=== PATIENT | male | born 1985 | race African-American/Black ===

== ENCOUNTER 2024-06-26 05:11 | Emergency (ER) | payer MEDICAID, SELFPAY ==
[2024-06-26 05:12] VITALS: BP 182/121; PULSE 95; RESP 19; TEMP 36.9; O2SAT 96; BMI 25.0
--- NOTE | 2024-06-26 05:26 | PD.EDRME ---
Rapid Medical Screening Exam RME Arrival date/time: 06/26/24 05:11 38-year-old male past medical history of daily drinker presents emergency department complaining of generalized weakness and reports last drink was yesterday. Chief Complaint: General Adult/Misc Complain Vital signs: Vital Signs Temperature 98.5 F 06/26/24 05:12 Pulse Rate 95 06/26/24 05:12 Respiratory Rate 19 06/26/24 05:12 Blood Pressure 182/121 H 06/26/24 05:12 Pulse Oximetry (%) 96 06/26/24 05:12 Oxygen Delivery Method Room Air 06/26/24 05:12 Vital signs reviewed by provider: Yes
--- NOTE | 2024-06-26 05:28 | EKG_ITS ---
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
[2024-06-26 05:36] VITALS: BP 182/121; PULSE 95
[2024-06-26] MEDS: LORazepam 0.5 MG TABLET 1 MG PO (05:36)
[2024-06-26] MEDS: ONDANSETRON ODT 4 MG TABRAP PO (05:36)
[2024-06-26] MEDS: hydrALAZINE HCL 25 MG TABLET PO (05:36)
[2024-06-26 06:05] LABS: Basophils # (Auto) 0.1 Thou/mm3 (0.0-0.2); Basophils % (Auto) 1 % (0-2.5); Eosinophils # (Auto) 0.3 Thou/mm3 (0.0-0.5); Eosinophils % (Auto) 3 % (0-10); Hemoglobin 15.5 g/dL (13.5-16.0); Immature Granulocytes % (Auto) 0 % (0-0); Immature Granulocytes Auto 0.02 Thou/mm3 (0.00-0.00); Lymphocytes % (Auto) 24 % (10-50); Mean Corpuscular HGB Conc 34.4 g/dl (31.0-37.0); Mean Corpuscular Hemoglobin 30.7 pg (25.0-35.0); Mean Corpuscular Volume 89 fL (80-100); Monocytes # (Auto) 0.5 Thou/mm3 (0.0-0.8); Monocytes % (Auto) 6 % (0-12); Neutrophils # (Auto) 5.6 Thou/mm3 (1.8-7.7); Neutrophils % (Auto) 66 % (37-80); Nucleated Red Blood Cell % 0 /100 WBC (0); Platelet Count 229 Thou/mm3 (140-440); RDW Standard Deviation 45.1 fL (35.1-43.9); Red Blood Count 5.05 Miln/mm3 (4.50-5.90); White Blood Count 8.5 Thou/mm3 (3.8-10.6)
[2024-06-26 06:14] LABS: Collection Type, Urine Clean Catch
[2024-06-26 06:18] LABS: Alanine Aminotransferase 50 U/L (10-49); Albumin, Serum 5.2 gm/dL (3.5-5.0); Albumin/Globulin Ratio 2.2 (1.2-2.2); Alcohol, Blood Medical 135.1 mg/dL (0-10.0); Alkaline Phosphatase 72 U/L (46-116); Anion Gap 11 (7-16); Aspartate Amino Transferase 55 U/L (0-34); BUN/Creatinine Ratio 8 Ratio (12-20); Bilirubin,Total 1.4 mg/dL (0.3-1.2); Blood Urea Nitrogen 9 mg/dL (9-23); Calcium 9.8 mg/dL (8.3-10.6); Calcium (Corrected) 9.8 mg/dL (8.5-10.1); Carbon Dioxide 31.5 mMol/L (20.0-31.0); Chloride 98 mMol/L (98-107); Creatinine (Component) 1.1 mg/dL (0.6-1.3); Estimated Creatinine Clearance 84.3 mL/min (>60); Globulin 2.4 gm/dL (2.3-3.5); Glucose 96 mg/dL (74-106); Magnesium 1.9 mg/dL (1.6-2.6); Osmolality,Calculated 278 (275-295); Potassium 4.3 mMol/L (3.4-5.1); Sodium 140 mMol/L (136-145); Total Protein 7.6 gm/dL (5.7-8.2); Troponin I < 0.020 ng/mL (0.0-0.045); eGFR > 60 See Note
[2024-06-26 06:22] LABS: Bilirubin,Urine Negative (Negative); Blood,Urine 1+ (Negative); Clarity,Urine Clear (Clear/Hazy); Color,Urine Yellow (Lt Yel-Yel); Culture Indicated,Urine Not Indicated; Glucose, Urine Negative (Negative); Hyaline Casts,Urine < 1 /hpf (0-1); Ketones,Urine 2+ (Negative); Leukocyte Esterase,Urine Negative (Negative); Nitrite,Urine Negative (Negative); PH,Urine 6.5 (5.0-7.0); Protein,Urine 1+ (Neg - Trace); RBC,Urine 3 /hpf (0-3); Specific Gravity,Urine 1.027 (1.001-1.035); Squamous Epithelial Cell,Urine < 1 /hpf (0-5); Urobilinogen,Urine Negative mg/dL (0.0-1.0); WBC,Urine 2 /hpf (0-5)
[2024-06-26 06:28] LABS: Partial Thromboplastin Time 25.5 Seconds (22.0-36.0); Prothrombin Time 11.2 Seconds (9.0-12.2)
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
[2024-06-26 07:07] LABS: Amphetamine/Methamp Scrn,U Negative (Negative); Barbiturate Screen,Urine Negative (Negative); Benzodiazepines Screen,Urine Negative (Negative); Benzoylecgonine Screen, Ur Negative (Negative); Fentanyl Screen,Urine Negative (Negative); Opiate Screen,Urine Negative (Negative); THC Screen,Urine Positive (Negative)
[2024-06-26 07:11] VITALS: BP 127/85; PULSE 80; RESP 18; TEMP 36.7; O2SAT 99
== END 2024-06-26 07:10 | disposition home or self-care (01) ==
PROVIDERS: Emergency Provider Emergency Medicine; PCP Family Medicine
DX: F10.10 Alcohol abuse, uncomplicated (principal)
CPT/HCPCS: 36415; 80053; 80307; 80320; 81001; 83735; 84484; 85025; 85610; 85730; 93005; 99283; Q0162; A9270; G0480

== ENCOUNTER 2025-05-22 10:43 | Emergency (ER) | payer MEDICAID, SELFPAY ==
[2025-05-22] VITALS (7 sets, daily range): BP systolic 124–200; BP diastolic 98–132; PULSE 78–136; RESP 16–20; TEMP 36.6–37.3; O2SAT 94–97; BMI 25.8
--- NOTE | 2025-05-22 11:21 | EKG_ITS ---
[facility] Test Date: 2025-05-22 Pat Name: CARMELO GUZMÁN Department: Room: - Gender: Male Speech Lang Path: : 1985 Requested By: Laurent Hillman ([facility]) Order Number: [id number] Reading MD: Laurent Hillman ([facility]) Measurements Intervals [place] Rate: 128 P: 65 RI: 130 QRS: 41 QRSD: 86 T: 47 QT: 291 QTc: 426 Interpretive Statements SINUS TACHYCARDIA LEFT VENTRICULAR HYPERTROPHY AND ST-T CHANGE [VOLTAGE CRITERIA PLUS ST/T ABNORMALITY] Compared to ECG 06/26/2024 05:39:38 ST (T wave) deviation now present Sinus rhythm no longer present Sinus arrhythmia no longer present T-wave abnormality no longer present /store/S0/[id number]
--- NOTE | 2025-05-22 11:31 | PD.EDABDPN ---
ED Abdominal Pain RME/HPI General Chief Complaint: Abdominal Pain Stated complaint: abdominal pain Time seen by provider: 05/22/25 11:30 Arrival date/time: 05/22/25 10:43 RME / HPI RME / HPI narrative: See [facility] for Dr. Mcgarry's HPI documentation. Related Data Home Medications ?Medication ?Instructions ?Recorded ?Confirmed lisinopril 10 1 tab PO QDAY 08/11/22 08/11/22 mg-hydrochlorothiazide 12.5 mg tablet Previous Rx's ?Medication ?Instructions ?Recorded alprazolam 0.25 mg tablet (Xanax) 0.25 mg PO BID PRN anxiety #14 tabs 03/19/23 lisinopril 10 1 tab PO QDAY #30 tabs 05/17/24 mg-hydrochlorothiazide 12.5 mg tablet (Zestoretic) metoclopramide HCl 10 mg tablet 10 mg PO Q6H PRN nausea and 06/26/24 (Reglan) vomiting #30 tabs clonidine HCl 0.1 mg tablet 0.1 mg PO BID #60 tabs 05/22/25 Allergies Allergy/AdvReac Type Severity Reaction Status Date / Time almond Allergy Severe Swelling Verified 05/17/24 10:52 of Lip/Tongue/Throat Ruth nut Allergy Severe Swelling Verified 05/17/24 10:52 of Lip/Tongue/Throat melon Allergy Severe Swelling Verified 05/17/24 10:51 of Lip/Tongue/Throat pecan nut Allergy Severe Swelling Verified 05/17/24 10:52 of Lip/Tongue/Throat walnut Allergy Severe Swelling Verified 05/17/24 10:52 of Lip/Tongue/Throat Review of Systems Review of Systems Systems Reviewed: All systems reviewed, normal except as documented Past Medical History Past Medical History CARDIAC: Positive Hypertension Social History SMOKING STATUS: Light (< 1 pack/day) ED Exam Narrative Physical exam: See [facility] for Dr. Mcgarry's physical exam documentation. Course Quality Measures none Orders Category Date Time Status Bedside COVID-19 Antigen Test NOW Care 05/22/25 12:01 Completed EKG (ED ONLY) *Do not use* NOW Care 05/22/25 11:21 Completed Saline [Insert IV] NOW Care 05/22/25 12:[address] chest abdomen pelvis wo Stat Exams 05/22/25 12:[address] head/brain wo con Stat Exams 05/22/25 12:03 Completed EKG (ED Only) Stat Exams 05/22/25 11:21 Draft US gall bladder Stat Exams 05/22/25 12:17 Completed XR chest 1V portable Stat Exams 05/22/25 12:03 Completed Acetaminophen Stat Lab 05/22/25 12:03 Completed Alcohol, Blood Medical Stat Lab 05/22/25 12:03 Completed Amylase Stat Lab 05/22/25 12:03 Completed BNP [B-Type Natriuretic Peptide] Stat Lab 05/22/25 12:30 Completed Beta Hydroxybutyrate Stat Lab 05/22/25 12:03 Completed Bilirubin,Direct Stat Lab 05/22/25 12:03 Completed CBC Stat Lab 05/22/25 12:04 Completed CK [Creatine Kinase] Stat Lab 05/22/25 12:03 Completed CMP [Comprehensive Metabolic Panel] Stat Lab 05/22/25 12:03 Completed CRP [C-Reactive Protein] Stat Lab 05/22/25 12:03 Completed D-Dimer Stat Lab 05/22/25 12:30 Completed Drug Screen,Urine Stat Lab 05/22/25 12:43 Completed ESR [Sed Rate (ESR)] Stat Lab 05/22/25 12:04 Completed Influenza A & B Rapid Panel Stat Lab 05/22/25 13:23 Completed Lipase Stat Lab 05/22/25 12:03 Completed Magnesium Stat Lab 05/22/25 12:03 Completed Procalcitonin Stat Lab 05/22/25 12:03 Completed Salicylate Stat Lab 05/22/25 12:03 Completed TSH [Thyroid Stimulating Hormone] Stat Lab 05/22/25 12:03 Completed Troponin I Stat Lab 05/22/25 12:03 Completed UA, C/S IF [Urinalysis, C/S if Indicated] Stat Lab 05/22/25 12:42 Completed VBG [Venous Blood Gas] Stat Lab 05/22/25 12:30 Completed Metoprolol Tartrate Inj [Lopressor Inj] Med 05/22/25 13:02 Discontinued 5 mg IVP X1 ONE Metoprolol Tartrate [Lopressor] Med 05/22/25 12:01 Discontinued 50 mg PO X1 ONE Metoprolol Tartrate [Lopressor] Med 05/22/25 13:33 Discontinued 75 mg PO X1 ONE Ondansetron Inj [Zofran Inj] Med 05/22/25 12:02 Discontinued 4 mg IVP X1 ONE Sodium Chloride 0.9% 1000 ml [Ns] 1,000 ml Med 05/22/25 12:02 Discontinued IV 999 mls/hr cloNIDine HCL [Catapres] Med 05/22/25 12:01 Discontinued 0.3 mg PO X1 ONE Vital Signs Vital signs: Vital Signs Temperature 98.4 F 05/22/25 10:57 Pulse Rate 136 H 05/22/25 10:57 Respiratory Rate 18 05/22/25 10:57 Blood Pressure 162/125 H 05/22/25 10:57 Pulse Oximetry (%) 96 05/22/25 10:57 Pulse ox is 96% on room air which is adequate. Abdominal Pain MDM MDM Narrative MDM Narrative:: This section includes all my notes and documentations, including HPI, PE, and ED course. Kartik Mcgarry MD HPI: 39-year-old male here with multiple symptoms. But high BP is his main concern. He reports headache and dizziness. With chest pain and abdominal pain and shortness of breath. No other complaints. ROS: All negative except as documented in HPI. Physical Exam: General: Alert and oriented. No acute distress when remaining still. Eyes: Conjunctivae and lids clear. EOMI. PERRL. ENT: No nasal congestion. Pharynx normal. Tympanic membrane normal bilaterally. Neck: Supple. No carotid bruit. No JVD. Heart: Sinus tachycardia noted. Lungs: No respiratory distress. Good air movement. No rhonchi, wheezing, rales. Chest: No tenderness. Abdomen: Soft and nontender. Normal bowel sounds. No distension. No rebound or guarding. Back: No CVA tenderness. Legs: No clubbing, cyanosis, edema. Skin: Warm and dry. Neuro: Alert and oriented X 3. Cranial Nerves II-XII grossly intact. No peripheral motor deficits. Musculoskeletal: All major joints and bones are not tender with no limited ROM. I reviewed all diagnostic test results: My interpretation of the EKG is: Sinus tachycardia (128 bpm) with nonspecific ST-T changes.? My interpretation of the chest x-ray is: NAD. My review of the CT head report is: No acute findings. My review of the CT chest/abdomen/pelvis report is: No acute findings. My review of the gallbladder ultrasound report is: No acute findings. Blood tests and urine tests unremarkable. Covid/Influenza are negative. At this point, diagnoses include: Hypertensive urgency Treatment here included: IV fluid Zofran 4 mg IV Oral Clonidine 0.3 mg Oral Metoprolol 50 mg Metoprolol 5 mg IV Significant improvement noted. Recommended outpatient management. Based on my best medical judgment, made decision no further evaluation or treatment indicated at this time. Patient understands and agrees to the discharge instructions customized and printed, see below. Discharge instructions from Dr. Mcgarry: 1. After extensive evaluation, there is no life-threatening condition. Such as heart attack or pulmonary embolism (blood clots in your lungs) or pneumothorax (collapsed lung). 2. You were treated for severely high BP. We need to keep your BP lowered to prevent future heart attacks and strokes. 3. Take Clonidine 0.1 mg pill(s) every 12 hours as needed based on SBP (higher number of BP). On top of your current BP medications. SBP > 140, take one pill. SBP > 160, take two pills. SBP > 180, take three pills. SBP > 200, take four pills. 4. See a private doctor on 05/23/2025 for recheck. Ask to review all test results and official radiology reports, to make sure you receive all necessary follow-ups and monitoring. To make sure there is no serious underlying heart condition, ask to help you get more tests for your heart that cannot be done here in the ER. Such as Holter Monitor (cardiac monitoring at home from a day to even a month), heart stress test (on treadmill or with medication), echocardiogram (imaging of your heart structures), heart catherization (checking for blockages in your heart arteries), and a referral to see a Senior Production Supervisor. Ask for help with better management of your BP. 5. Seek immediate medical care with worsening or with any concerns. Kartik Mcgarry MD Patient data External records reviewed:: [facility] previous records Clinical information provided by:: patient Social determinants that could affect healthcare access:: none Patient has the following chronic illnesses:: Hypertension How is presenting disease/condition affected by chronic disease/condition?: exacerbated by Evaluation data The following diagnostics were reviewed and interpreted by me:: EKG tracing(s) (My interpretation of the EKG is: Sinus tachycardia (128 bpm) with nonspecific ST-T changes. Kartik Mcgarry MD) Lab and/or radiology exams considered but not ordered:: None Interpretation Summary: I reviewed all diagnostic test results: My interpretation of the EKG is: Sinus tachycardia (128 bpm) with nonspecific ST-T changes.? My interpretation of the chest x-ray is: NAD. My review of the CT head report is: No acute findings. My review of the CT chest/abdomen/pelvis report is: No acute findings. My review of the gallbladder ultrasound report is: No acute findings. Blood tests and urine tests unremarkable. Covid/Influenza are negative. Medications / Prescriptions Medications or Prescriptions considered but not ordered:: None Medication administrations:: Medication Administration History Discontinued Medications Clonidine (Clonidine Hcl 0.1 Mg Tablet) 0.3 mg PO X1 ONE Stop: 05/22/25 12:02 Last Admin: 05/22/25 12:36 Dose: 0.3 mg Documented By: JANETT Sodium Chloride (Ns) 1,000 mls @ 999 mls/hr IV .Q1H1M ONE Stop: 05/22/25 13:02 Last Infusion: 05/22/25 14:29 Dose: Infused Documented By: Admin: 05/22/25 12:32 Dose: 999 mls/hr Documented By: JANETT Metoprolol Tartrate (Metoprolol Tartrate 25 Mg Tablet) 50 mg PO X1 ONE Stop: 05/22/25 12:02 Last Admin: 05/22/25 12:38 Dose: 50 mg Documented By: JANETT Metoprolol Tartrate (Metoprolol Tartrate Inj 1 Mg/Ml Amp 5 Ml) 5 mg IVP X1 ONE Stop: 05/22/25 13:03 Last Admin: 05/22/25 13:28 Dose: 5 mg Documented By: JANETT Metoprolol Tartrate (Metoprolol Tartrate 25 Mg Tablet) 75 mg PO X1 ONE Stop: 05/22/25 13:34 Last Admin: 05/22/25 13:48 Dose: Not Given Documented By: JANETT Non-Admin Reason: Cancelled by Provider Ondansetron HCl (Ondansetron Inj 2 Mg/Ml Inj 2 Ml) 4 mg IVP X1 ONE; Protocol Stop: 05/22/25 12:03 Last Admin: 05/22/25 12:35 Dose: 4 mg Documented By: JANETT Treatment here included: IV fluid Zofran 4 mg IV Oral Clonidine 0.3 mg Oral Metoprolol 50 mg Metoprolol 5 mg IV Consultations Consultation(s) initiated? (list below): No Diagnosis Differential diagnosis abdominal pain: abdominal pain, calculus of kidney, constipation and diverticulitis Most likely diagnosis given after review of the tests above:: Hypertensive urgency Admission Indicated Admission indicated?: not indicated Explain why admission is indicated or not indicated:: With significant improvement and no condition needing emergent intervention, there was no indication for admission. Admission Request Was there a request for admission?: No Disposition Plan Disposition Plan: Discharge Discharge Attestation Discharge Attestation: The patient and all family members were given an opportunity to ask questions and understood the discharge instructions. Discharge instructions specifically effects, indications for sooner follow up or return to the emergency department, and the expected course of current diagnosis. Patient condition: Stable Discharge Plan Plan Patient Disposition: HOME (Self Care) Prescriptions/Referrals Prescriptions/Med Rec: New clonidine HCl 0.1 mg tablet 0.1 mg PO BID Qty: 60 0RF No Action lisinopril-hydrochlorothiazide [Zestoretic] 10-12.5 mg tablet 1 tab PO QDAY Qty: 30 0RF metoclopramide HCl [Reglan] 10 mg tablet 10 mg PO Q6H PRN (Reason: nausea and vomiting) Qty: 30 0RF lisinopril-hydrochlorothiazide 10-12.5 mg tablet 1 tab PO QDAY Patient Comments: TAKE 1 TABLET BY MOUTH EVERY DAY alprazolam [Xanax] 0.25 mg tablet 0.25 mg PO BID PRN (Reason: anxiety) Qty: 14 0RF Referrals: Bro Lang MD [Primary Care Provider] - In 1 week Problem List Clinical Impression: Hypertensive urgency Patient/Caregiver Discharge Instructions Discharge Activity: activity as tolerated Education Materials: ED Hypertension, Established Additional Instructions: Discharge instructions from Dr. Mcgarry: 1. After extensive evaluation, there is no life-threatening condition. Such as heart attack or pulmonary embolism (blood clots in your lungs) or pneumothorax (collapsed lung). 2. You were treated for severely high BP. We need to keep your BP lowered to prevent future heart attacks and strokes. 3. Take Clonidine 0.1 mg pill(s) every 12 hours as needed based on SBP (higher number of BP). On top of your current BP medications. SBP > 140, take one pill. SBP > 160, take two pills. SBP > 180, take three pills. SBP > 200, take four pills. 4. See a private doctor on 05/23/2025 for recheck. Ask to review all test results and official radiology reports, to make sure you receive all necessary follow-ups and monitoring. To make sure there is no serious underlying heart condition, ask to help you get more tests for your heart that cannot be done here in the ER. Such as Holter Monitor (cardiac monitoring at home from a day to even a month), heart stress test (on treadmill or with medication), echocardiogram (imaging of your heart structures), heart catherization (checking for blockages in your heart arteries), and a referral to see a Senior Production Supervisor. Ask for help with better management of your BP. 5. Seek immediate medical care with worsening or with any concerns. Print Language: Georgian Stand Alone Forms: Greta Award Info., Patient Portal Info Letter
--- NOTE | 2025-05-22 12:03 | XR_ITS ---
EXAMINATION: AP chest single view TECHNIQUE: AP portable upright chest single view Date and time: May 22, 2025, 1204 p.m. INDICATIONS: Chest pain shortness of breath today. FINDINGS: Normal heart size. Lungs are clear. The osseous structures are intact. IMPRESSION: No active disease
--- NOTE | 2025-05-22 12:03 | XR_ITS ---
Examination: CT chest, without intravenous contrast. CT abdomen, without intravenous contrast. CT pelvis, without intravenous contrast. 2-D sagittal and coronal reconstructions. 3-D reconstructions. Date and time of exam: May 22, 2025, 1252 hours MEDICATIONS: Onset generalized chest and abdominal pain today CTDI vol (mgy) 5.91 DLP (MGycm) 434 Technique: Multiple CT images, 3.0 mm slice thickness, obtained chest, abdomen, pelvis, with the high-resolution 64 slice scanner.. Sagittal and coronal 2-D reconstructions are obtained. 3-D reconstructions Low dose protocols were performed. One or more of the following dose reduction techniques were used; automated exposure control, adjustment of the mA and/or KV according to patient size, use of iterative reconstruction technique. Findings: No thoracic aortic aneurysmal dilatation Pulmonary artery segments are not enlarged. No paratracheal or tracheobronchial or bronchopulmonary adenopathy No pneumonia or pulmonary edema Fatty infiltration throughout the liver no focal liver or splenic lesions Gallbladder wall appears mildly thickened No pancreatic or adrenal mass No renal or ureteral calculi, no hydronephrosis Aorta normal size Normal appendix No bowel obstruction or diverticulitis No prostatomegaly Normal seminal vesicles No bladder mass or bladder calculi Mild chronic osteoporotic compression T7, T6, T5 No acute fracture Hips bones of the pelvis intact IMPRESSION: No mediastinal lymphadenopathy No pneumonia pulmonary edema or pleural disease Recommend about a biliary sonography to exclude gallbladder wall thickening No renal or ureteral calculi, no hydronephrosis Normal appendix No bowel obstruction diverticulitis or free air
--- NOTE | 2025-05-22 12:03 | XR_ITS ---
Examination: CT brain head without contrast. 2-D sagittal coronal reconstructions Date and time of exam: May 22, 2025, 1249 hours INDICATIONS: High blood pressure with head pain today COMPARISON: May 17, 2024 CTDI: vol (mGy): 50.4 DLP: (mGycm): 1035 Technique: Multiple CT axial sections of the brain have been obtained, 5 mm slice thickness. Contrast has not been administered. 2-D sagittal, coronal reconstructions have been obtained Low dose protocols were performed. One or more of the following dose reduction techniques were used; automated exposure control, adjustment of the mA and/or KV according to patient size, use of iterative reconstruction technique. Findings: No significant ventricular enlargement. Intra-axial or extra-axial hemorrhage density is not seen. No mass effect or midline shift Basal cisterns are not remarkable. Fourth ventricle is midline. Cranial vault intact. Impression: Negative for acute hemorrhage, mass effect or midline shift
--- NOTE | 2025-05-22 12:17 | XR_ITS ---
Examination: Abdomen sonogram, Limited Date and time of exam: May 22, 2025, 12:54 p.m. INDICATIONS: Right upper abdominal tenderness beginning 3 days ago Technique: Real-time schulte scale transabdominal sonographic images of the upper abdomen obtained. Findings: Normal gallbladder. Normal common bile duct 0.5 cm Pancreatic head 2.2 cm Liver 14 cm smooth contour no focal liver lesions Normal hepatopetal portal venous flow Patent IVC IMPRESSION: Normal gallbladder
[2025-05-22] MEDS: SODIUM CHLORIDE 0.9% 1000 ML 1,000 ML 999 ML IV (12:32)
[2025-05-22] MEDS: ONDANSETRON INJ 2 MG/ML INJ 2 ML 4 MG IVP (12:35)
--- NOTE | 2025-05-22 12:35 | PC.NURSE ---
pt taken to CT.
[2025-05-22] MEDS: METOPROLOL TARTRATE 25 MG TABLET 50 MG PO (12:38)
[2025-05-22 12:43] LABS: Base Excess, Venous 6 (-3-3); O2 Saturation, Venous 81 % (96-97); PCO2, Venous 37 mmHg (36-56); PO2, Venous 41 mmHg (15-58); pH, Venous 7.51 (7.33-7.66)
[2025-05-22 12:46] LABS: Basophils # (Auto) 0.0 Thou/mm3 (0.0-0.2); Basophils % (Auto) 0 % (0-2.5); Eosinophils # (Auto) 0.0 Thou/mm3 (0.0-0.5); Eosinophils % (Auto) 0 % (0-10); Hematocrit 41.2 % (41.0-53.0); Hemoglobin 14.2 g/dL (13.5-16.0); Immature Granulocytes Auto 0.02 Thou/mm3 (0.00-0.00); Lymphocytes # (Auto) 0.8 Thou/mm3 (1.0-4.8); Lymphocytes % (Auto) 9 % (10-50); Mean Corpuscular HGB Conc 34.5 g/dl (31.0-37.0); Mean Corpuscular Hemoglobin 31.0 pg (25.0-35.0); Mean Corpuscular Volume 90 fL (80-100); Monocytes # (Auto) 0.6 Thou/mm3 (0.0-0.8); Monocytes % (Auto) 6 % (0-12); Neutrophils # (Auto) 7.3 Thou/mm3 (1.8-7.7); Neutrophils % (Auto) 84 % (37-80); Nucleated Red Blood Cell # 0.00 Thou/mm3 (0.00-0.00); Nucleated Red Blood Cell % 0 /100 WBC (0); Platelet Count 171 Thou/mm3 (140-440); RDW Standard Deviation 40.2 fL (35.1-43.9); Red Blood Count 4.58 Miln/mm3 (4.50-5.90); White Blood Count 8.7 Thou/mm3 (3.8-10.6)
[2025-05-22 12:47] LABS: Beta Hydroxybutyrate 0.4 mmol/L (<0.6)
[2025-05-22 12:51] LABS: Collection Type, Urine Clean Catch; Squamous Epithelial Cell,Urine 0 /hpf (0-5)
[2025-05-22 12:59] LABS: Bacteria,Urine Rare; Bilirubin,Urine Negative (Negative); Blood,Urine Trace (Negative); Clarity,Urine Clear (Clear/Hazy); Color,Urine Yellow (Lt Yel-Yel); Culture Indicated,Urine Not Indicated; Glucose, Urine Negative (Negative); Ketones,Urine Trace (Negative); Leukocyte Esterase,Urine Negative (Negative); Nitrite,Urine Negative (Negative); PH,Urine 7.0 (5.0-7.0); Protein,Urine Trace (Neg - Trace); RBC,Urine 3 /hpf (0-3); Specific Gravity,Urine 1.019 (1.001-1.035); Urobilinogen,Urine Negative mg/dL (0.0-1.0); WBC,Urine 1 /hpf (0-5)
[2025-05-22 13:00] LABS: D-Dimer 639 ng/mL (<600)
[2025-05-22 13:07] LABS: B-Type Natriuretic Peptide < 20 pg/mL (0-100)
[2025-05-22 13:18] LABS: Acetaminophen < 2.0 mcg/mL (10.0-20.0); Alanine Aminotransferase 30 U/L (10-49); Albumin, Serum 5.2 gm/dL (3.5-5.0); Albumin/Globulin Ratio 2.4 (1.2-2.2); Alcohol, Blood Medical < 3.0 mg/dL (0-10.0); Alkaline Phosphatase 77 U/L (46-116); Amylase 160 U/L (30-118); Anion Gap 12 (7-16); Aspartate Amino Transferase 38 U/L (0-34); BUN/Creatinine Ratio 6 Ratio (12-20); Bilirubin,Direct 0.5 mg/dL (0.0-0.3); Bilirubin,Total 1.6 mg/dL (0.3-1.2); Blood Urea Nitrogen 7 mg/dL (9-23); C-Reactive Protein < 0.5 mg/dL (0.0-0.9); Calcium 9.7 mg/dL (8.3-10.6); Calcium (Corrected) 9.7 mg/dL (8.5-10.1); Carbon Dioxide 27.0 mMol/L (20.0-31.0); Chloride 99 mMol/L (98-107); Creatine Kinase 208 U/L (34-171); Creatinine (Component) 1.1 mg/dL (0.6-1.3); Estimated Creatinine Clearance 83.5 mL/min (>60); Globulin 2.2 gm/dL (2.3-3.5); Glucose 113 mg/dL (74-106); Lipase 22 U/L (12-53); Magnesium 1.9 mg/dL (1.6-2.6); Osmolality,Calculated 274 (275-295); Potassium 3.8 mMol/L (3.4-5.1); Procalcitonin 0.05 ng/ml (0.0-0.49); Salicylate < 3.0 mg/dL; Sodium 138 mMol/L (136-145); Thyroid Stimulating Hormone 0.65 uIU/mL (0.55-4.78); Total Protein 7.4 gm/dL (5.7-8.2); Troponin I < 0.020 ng/mL (0.0-0.045); eGFR > 60 See Note
[2025-05-22 13:18] LABS: Amphetamine/Methamp Scrn,U Negative (Negative); Barbiturate Screen,Urine Negative (Negative); Benzodiazepines Screen,Urine Negative (Negative); Benzoylecgonine Screen, Ur Negative (Negative); Fentanyl Screen,Urine Negative (Negative); Opiate Screen,Urine Negative (Negative); THC Screen,Urine Positive (Negative)
[2025-05-22] MEDS: METOPROLOL TARTRATE INJ 1 MG/ML AMP 5 ML 5 MG IVP (13:28)
[2025-05-22 13:50] LABS: Influenza A Ag Negative; Influenza B Ag Negative
[2025-05-22 14:08] LABS: Sed Rate (ESR) 2 mm/hr (0-15)
== END 2025-05-22 14:31 | disposition home or self-care (01) ==
PROVIDERS: Emergency Provider Emergency Medicine; PCP Internal Medicine Pulmonary Disease
DX: I16.0 Hypertensive urgency (principal)
CPT/HCPCS: 36415; 70450; 71045; 71250; 74176; 76705; 80053; 80307; 80320; 80329; 81001; 82010; 82150; 82248; 82550; 82803; 83690; 83735; 83880; 84145; 84443; 84484; 85025; 85379; 85652; 86140; 87502; 87811; 93005; 96361; 96374; 96375; 99284; J2405; J3490; J7030; A9270; G0480